=== PATIENT | female | born 1990 | race Caucasian/White ===

== ENCOUNTER 2021-05-26 17:35 | Emergency (ER) | payer OTHER ==
[2021-05-26 17:38] VITALS: BP 124/84; PULSE 65; RESP 16; TEMP 97.2
[2021-05-26] MEDS ORDERED: ACETAMINOPHEN TAB 500 MG TAB PO STA (17:59)
--- NOTE | 2021-05-26 18:48 | XR ---
EXAMINATION TYPE: XR foot complete LT DATE OF EXAM: 05/26/2021 COMPARISON: NONE HISTORY: Foot pain TECHNIQUE: 3 views FINDINGS: Metatarsals appear intact. I see no fracture nor dislocation. The toes appear intact. IMPRESSION: Negative left foot exam. No evidence of a fracture of the toes.
--- NOTE | 2021-05-26 19:07 | ED ---
General Adult HPI - General Chief complaint: Extremity Injury, Lower Stated complaint: Lt Foot Injury Time Seen by Provider: 05/26/21 17:40 Source: patient, RN notes reviewed, old records reviewed Mode of arrival: wheelchair - History of Present Illness Initial comments: Patient is a 31-year-old female who is currently approximately 8 weeks presents emergency department after dropping a spot on her left foot. She was at work when she dropped it on her left foot. She states her lateral 2 toes on her foot hurt. She is able to ambulate. No other injuries. Denies any abdominal cramping or vaginal discharge. Denies any vaginal bleeding. Denies any abdominal injury. Has no other acute complaints at this time. Reasons over concern for possible to medic injury to her left toes. Denies any weakness or numbness. - Related Data Home Medications Medication Instructions Recorded Confirmed No Known Home Medications 05/26/21 05/26/21 Allergies Allergy/AdvReac Type Severity Reaction Status Date / Time No Known Allergies Allergy Verified 05/26/21 18:15 Review of Systems ROS Statement: Those systems with pertinent positive or pertinent negative responses have been documented in the HPI. Review of Systems: CONST: Denies fever EYES: Denies blurry vision ENT: Denies nasal congestion C/V: Denies Chest pain RESP: Denies shortness of breath GI: Denies abdominal pain : Denies dysuria SKIN: Denies rash. MSK: left toe pain NEURO: Denies headache ROS Other: All systems not noted in ROS Statement are negative. Past Medical History Past Medical History: No Reported History Additional Past Medical History / Comment(s): no past medical history per patient History of Any Multi-Drug Resistant Organisms: None Reported Past Surgical History: No Surgical Hx Reported Additional Past Surgical History / Comment(s): none Past Anesthesia/Blood Transfusion Reactions: No Reported Reaction Additional Past Anesthesia/Blood Transfusion Reaction / Comment(s): no Past Psychological History: No Psychological Hx Reported Smoking Status: Vaper Past Alcohol Use History: None Reported Past Drug Use History: None Reported - Past Family History Father History Unknown: Yes Family Medical History: No Reported History General Exam - General Exam Comments Initial Comments: General: Appears in mild distress secondary to toe pain HEAD: Normal with no signs of head trauma. EYES: EOMI ENT: Hearing grossly intact RESPIRATORY: No increased work of breathing C/V: Regular rate and rhythm. Peripheral pulses 2+ and intact throughout. Good capillary refill in the distal extremities including the left toes. ABD: Abdomen is nondistended. EXT: Normal range of motion of all extremities including left foot and ankle. Some tenderness over flexion of the left fourth and fifth toes, however no reduced motion. No obvious deformities. No tenderness over the mid or hindfoot. No tenderness over the ankle. SKIN: No rashes or lesions observed on exposed skin. NEURO: Alert and oriented 4. Able to ambulate without difficulty. Course Vital Signs 05/26/21 17:36 Temperature 97.2 F L Pulse Rate 65 Respiratory 16 Rate Blood Pressure 124/84 O2 Sat by Pulse 100 Oximetry Medical Decision Making - Medical Decision Making This and the patient's presentation and physical exam, I'm concerned for possible bony traumatic injury the patient's left foot. We will obtain an x-ray of the left foot. She'll be given Tylenol for pain control. Patient was in agreement this plan. Patient's x-ray showed no acute fracture or subluxation. I discussed the findings with the patient. I believe it is safe for her to be discharged home. She'll be given a work note. She can use at home Tylenol [id number] for pain control. She was in agreement this plan. We discussed rest, elevation, as well as icing her injury. She likely has a bruising. She was in agreement this plan.Patient is on vitamins already and has follow up with her REC THERAPIST tomorrow. I instructed the patient to follow up with their PCP in the next 3 days. I explained that the patient should return to the emergency department if they experience any worsening symptoms. Strict return precautions were discussed with the patient. The patient expressed understanding of these instructions. I answered all questions that the patient had. The patient was discharged home in good condition with their prescriptions and follow up information. Disposition Clinical Impression: Left foot pain Disposition: HOME SELF-CARE Condition: Good Instructions (If sedation given, give patient instructions): Foot Contusion (ED) Is patient prescribed a controlled substance at d/c from ED?: No Referrals: None,Stated [Primary Care Provider] - 1-2 days
== END 2021-05-26 19:23 | disposition home or self-care (01) ==
LOC: EC 17:35
DX: O26.891 Other specified pregnancy related conditions, first trimester (principal); M79.672 Pain in left foot; F17.290 Nicotine dependence, other tobacco product, uncomplicated; Z3A.08 8 weeks gestation of pregnancy
CPT/HCPCS: 99283

== ENCOUNTER → 2021-06-11 | Outpatient (CLI) | payer OTHER ==
--- NOTE | 2021-06-11 10:52 | US ---
EXAMINATION TYPE: Transabdominal DATE OF EXAM: 06/11/2021 10:33 AM COMPARISON: NONE CLINICAL HISTORY: Z36.89 Encounter for other specified screening. Confirm dates. EXAM PERFORMED: Transabdominal (TA) EXAM MEASUREMENTS: GESTATIONAL AGE / DATING Dates by LMP: (10 weeks/3 days) EDC: 01/04/2022 Dates by Current Scan for: (10 weeks/4 days) EDC: 01/03/2022 MATERNAL ANATOMY Uterus: 13.0 x 6.6 x 6.6 Right Ovary: 3.2 x 1.9 x 1.2 cm Left Ovary: 3.6 x 3.3 x 2.6 cm Post CDS / Adnexa: wnl Presence of free fluid: wnl Presence of corpus luteal cyst: Left ovary measuring 2.0 x 2.0 x 2.3 cm Presence of subchorionic bleed: none GESTATION / SURVEY CRL: 3.7 (10 weeks/4 days) Yolk Sac (normal less than 6mm): 0.5 Heart Rate: 166 bpm Rhythm: Normal IUP: Viable IUP Date of LMP: 03/30/2021 Beta HcG (if available): Not available at this time Single live IUP Single live intrauterine gestation as gestational sac, yolk sac, and pole are present. No free fluid in pelvic cul-de-sac. Both ovaries identified. Within the left ovary there is 2.3 cm thin-walled cyst possible corpus lutea l cyst. No suspicious extra ovarian adnexal lesions identified. IMPRESSION: Single live intrauterine gestation is confirmed, mean crown-rump length is 3.7 cm corresp onding to 10 week 4 day old fetus.
== END | disposition home or self-care (01) ==
LOC: RADUSWWP 10:16
PROVIDERS: ATTEND Obstetrics & Gynecology
DX: Z36.89 Encounter for other specified antenatal screening (principal); Z3A.10 10 weeks gestation of pregnancy
CPT/HCPCS: 76801

== ENCOUNTER 2021-09-26 16:53 | Outpatient (CLI) | payer OTHER ==
[2021-09-26 17:45] VITALS: BP 121/57; PULSE 75; RESP 17; TEMP 97.5
== END 2021-09-26 17:22 | disposition home or self-care (01) ==
LOC: FBPOP 16:53
PROVIDERS: ATTEND Obstetrics & Gynecology
DX: R10.9 Unspecified abdominal pain (principal)
CPT/HCPCS: 99213

== ENCOUNTER 2021-11-30 16:45 | Outpatient (CLI) | payer OTHER | END 2021-11-30 18:55 | disposition home or self-care (01) | LOC: FBPOP 16:45 | PROVIDERS: ATTEND Obstetrics & Gynecology | DX: O75.89 Other specified complications of labor and delivery (principal); Z3A.35 35 weeks gestation of pregnancy; Z91.09 Other allergy status, other than to drugs and biological substances | CPT/HCPCS: 59025; G0463; 99213 ==

== ENCOUNTER 2021-12-30 05:50 | Inpatient (IN) | payer OTHER ==
--- NOTE | 2021-12-29 19:43 | P.HPOB ---
History of Present Illness H&P Date: 12/29/21 Chief Complaint: Induction of labor This is a 31 y.o. female, 2, para 1, with an estimated date of confinement of 01/04/2022, estimated gestational age of 39-2/7 weeks, who presents for induction of labor. She complains of frequent contractions and pressure. has been uncomplicated. labs: Hepatitis B surface antigen-neg RPR-NR Rubella-immune Blood type-A neg Antibody screen-neg HIV-NR Hemoglobin-14.2 Random glucose-78 Quad-neg 1 hr. GTT-85 Rhogam given at 28 weeks GBS-neg OB Hx: . History of 1 vaginal delivery at 38 weeks for IUGR. Pegger Dobby Looms Hx: No hx STDs Social Hx: Engaged. 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 Review of Systems Constitutional: Denies chills, Denies fever Eyes: denies blurred vision, denies pain Ears, nose, mouth and throat: Denies headache, Denies sore throat Cardiovascular: Denies chest pain, Denies shortness of breath Respiratory: Denies cough Gastrointestinal: Reports abdominal pain (irregular contractions) Genitourinary: Reports Musculoskeletal: Reports low back pain Past Medical History Past Medical History: No Reported History Additional Past Medical History / Comment(s): no past medical history per patient History of Any Multi-Drug Resistant Organisms: None Reported Past Surgical History: No Surgical Hx Reported Additional Past Surgical History / Comment(s): none Past Anesthesia/Blood Transfusion Reactions: No Reported Reaction Additional Past Anesthesia/Blood Transfusion Reaction / Comment(s): no Past Psychological History: No Psychological Hx Reported Smoking Status: Vaper Past Alcohol Use History: None Reported Past Drug Use History: None Reported - Past Family History Father History Unknown: Yes Family Medical History: No Reported History Medications and Allergies Home Medications Medication Instructions Recorded Confirmed Type No Known Home Medications 05/26/21 05/26/21 History Allergies Allergy/AdvReac Type Severity Reaction Status Date / Time cat dander Allergy Swelling Verified 09/26/21 17:03 Exam Osteopathic Statement: *. No significant issues noted on an osteopathic structural exam other than those noted in the History and Physical/Consult. HEENT: within normal limits Heart: regular rate and rhythm Lungs: clear to auscultation bilaterally Abdomen: , non-tender Cervix: 2 cm/70%/-2 heart tones: 140's by doppler Extremities: neg. Keshawn's Assessment and Plan (1) 39 weeks gestation of Status: Acute Code(s): Z3A.39 - 39 WEEKS GESTATION OF SNOMED Code(s): 60060047 Plan: Admission for oxytocin induction of labor. Expectant management. Epidural anesthesia if desired.
[2021-12-30] MEDS ORDERED: LIDOCAINE 0.5% (PF) 5 MG/ML (50 ML SDV) SQ PRN (06:01)
[2021-12-30] MEDS ORDERED: OXYTOCIN 10 UNIT/ML 1 ML VIAL IM PRN (06:01)
[2021-12-30] MEDS ORDERED: OXYTOCIN 30 UNITS/500 ML NS 30 UNIT in SALINE 1 500ML.BAG IV SCH ×2 (06:01→14:26)
[2021-12-30] MEDS ORDERED: TERBUTALINE 1 MG/ML VIAL SQ PRN (06:01)
[2021-12-30] MEDS ORDERED: METHYLERGONOVINE 0.2 MG/ML 1 ML AMP IM PRN (06:01)
[2021-12-30] MEDS ORDERED: CARBOPROST TROMETHAMINE 250 MCG/ML 1 ML AMP IM PRN (06:01)
[2021-12-30] MEDS ORDERED: LIDOCAINE 1% (10MG/ML) FOR IV START INTRADERMA PRN (06:01)
[2021-12-30] MEDS: LACTATED RINGERS 1,000 ML IV SCH ×2 (06:10→16:56)
[2021-12-30 06:21] LABS: Basophils % (A) 0 %; Eosinophils # (A) 0.2 k/uL (0-0.7); Eosinophils % (A) 2 %; HCT 33.4 % (34.0-46.0); HGB 10.8 gm/dL (11.4-16.0); Hypochromasia Moderate; Lymphocytes # (A) 2.4 k/uL (1.0-4.8); Lymphocytes % (A) 23 %; MCH 26.6 pg (25.0-35.0); MCHC 32.4 g/dL (31.0-37.0); Mean Platelet Volume 11.2; Monocytes # (A) 0.7 k/uL (0-1.0); Monocytes % (A) 7 %; Neutrophils # (A) 6.9 k/uL (1.3-7.7); Neutrophils % (A) 66 %; Platelet Count 164 k/uL (150-450); RBC 4.07 m/uL (3.80-5.40); RDW 13.6 % (11.5-15.5); WBC 10.5 k/uL (3.8-10.6)
[2021-12-30] MEDS ORDERED: ROPIVACAINE 5 MG/ML 20 ML AMPULE ONE (09:07)
[2021-12-30] MEDS ORDERED: fentaNYL (PF) 50 MCG/ML 5 ML AMP ONE (09:07)
[2021-12-30] MEDS ORDERED: SODIUM CHLORIDE 0.9% 100 ML BAG ONE (09:07)
[2021-12-30] MEDS ORDERED: ROPIVACAINE 100 MG, fentaNYL (PF). 200 MCG in SODIUM CHLORIDE 0.9% 76 ML EPIDURAL ONE (09:35)
[2021-12-30] MEDS ORDERED: diphenhydrAMINE 25 MG CAP PO PRN (14:26)
[2021-12-30] MEDS ORDERED: LANOLIN CREAM 5 GM TUBE TOPICAL PRN (14:26)
[2021-12-30] MEDS ORDERED: diphenhydrAMINE 50 MG CAP PO PRN (14:26)
[2021-12-30] MEDS ORDERED: ACETAMINOPHEN TAB 325 MG TAB PO PRN (14:26)
[2021-12-30] MEDS ORDERED: diphenhydrAMINE 50 MG/ML 1 ML VIAL IVP PRN ×2 (14:26)
[2021-12-30] MEDS ORDERED: ZOLPIDEM 5 MG TAB PO PRN (14:26)
[2021-12-30] MEDS ORDERED: HYDROCORTISONE 2.5% RECTAL CREAM 30 GM TUBE RECTAL PRN (14:26)
[2021-12-30] MEDS ORDERED: BENZOCAINE/MENTHOL SPRAY 1 GM/SPRAY AEROSOL TOPICAL PRN (14:26)
[2021-12-30] MEDS ORDERED: SIMETHICONE 80 MG CHEWABLE PO PRN (14:26)
[2021-12-30] MEDS: IBUPROFEN 600 MG TAB PO PRN ×2 (14:51→21:10)
[2021-12-30] MEDS ORDERED: Rhogam IMMUNE GLOBULIN 1,500 UNIT/1 ML IM ONE (16:48)
--- NOTE | 2021-12-30 17:40 | P.PROBDLV ---
Vaginal Delivery Note - . Vaginal Delivery Note: The patient progressed to complete dilation after oxytocin induction of labor and artificial rupture membranes with clear fluid noted. She did receive epidural anesthesia. Once reaching complete, she began pushing. 's head came to a crown. With one further push, the infant's head delivered across the perineum followed by the anterior shoulder. Nose and mouth were bulb suctioned at the perineum. With one push, the remainder the infant easily delivered and was placed on mother's abdomen. The cord was allowed to finish pulsating and then was clamped and cut. Infant was taken to warmer for evaluation by nursing staff. A viable female infant is noted with scores of 9 at 1 minute and 9 at 5 minutes and infant weight of 8 lbs. 0 oz. Placenta was delivered shortly thereafter, intact, with a three-vessel cord. Cord blood was also obtained secondary to Rh- status. Uterus contracted fairly well after oxytocin was given and uterine massage was carried out. A few clots were expressed from the endometrial cavity. Suction of the perineum revealed a small second-degree perineal laceration. This area was anesthetized with 1% lidocaine and then sutured with 3-0 Vicryl suture in the usual multilayer fashion. Estimated blood loss is approximately 200 mL's. Mother and infant are in stable condition.
[2021-12-30] MEDS: SENNOSIDES-DOCUSATE SODIUM 1 EACH TAB PO SCH (20:39)
[2021-12-31 02:25] VITALS: RESP 14
[2021-12-31] MEDS: IBUPROFEN 600 MG TAB PO PRN ×2 (03:23→09:35)
[2021-12-31] MEDS: SENNOSIDES-DOCUSATE SODIUM 1 EACH TAB PO SCH (08:20)
[2021-12-31 08:26] LABS: Basophils % (A) 0 %; Eosinophils # (A) 0.2 k/uL (0-0.7); Eosinophils % (A) 2 %; HCT 31.1 % (34.0-46.0); HGB 9.6 gm/dL (11.4-16.0); Hypochromasia Moderate; Lymphocytes # (A) 2.2 k/uL (1.0-4.8); Lymphocytes % (A) 21 %; MCH 25.7 pg (25.0-35.0); MCHC 30.8 g/dL (31.0-37.0); MCV 83.4 fL (80.0-100.0); Mean Platelet Volume 12.6; Monocytes # (A) 0.7 k/uL (0-1.0); Monocytes % (A) 7 %; Neutrophils # (A) 7.1 k/uL (1.3-7.7); Neutrophils % (A) 68 %; RBC 3.73 m/uL (3.80-5.40); RDW 13.7 % (11.5-15.5); WBC 10.5 k/uL (3.8-10.6)
[2021-12-31 08:45] LABS: Large Platelets Present
[2021-12-31 08:46] LABS: Platelet Count 136 k/uL (150-450); Polychromasia Present
--- NOTE | 2021-12-31 08:49 | P.DS ---
Providers Date of admission: 12/30/21 05:50 Expected date of discharge: 12/31/21 Attending physician: Yudi Carrington Primary care physician: Stated None - Discharge Diagnosis(es) (1) 39 weeks gestation of Current Visit: No Status: Acute Hospital Course: This is a 31-year-old female 2 para 1 at 39-2/7 weeks who presented for induction of labor. She underwent oxytocin induction of labor and delivered vaginally a viable female with scores of 9 at 1 minute and 9 at 5 minutes and infant weight of 8 lbs. 0 oz. on 12/30/2021. Her course has been uncomplicated. She is bottle feeding. Lochia is decreasing. Her pain is well-controlled. Vital signs are stable. Abdomen is soft with fundus firm and nontender. Extremities show negative Homans. Impression is status post vaginal delivery day #1. Plan is to discharge home today. Routine instructions are given. She will be given a prescription for ibuprofen. She is advised follow-up in the office in 6 weeks for check. She is advised to call the office if she has any further questions or concerns prior to her appointment time. Procedures: Oxytocin induction of labor Spontaneous vaginal delivery of a viable female on 12/30/2021 Patient Condition at Discharge: Stable Plan - Discharge Summary New Discharge Prescriptions: New Ibuprofen [Motrin] 600 mg PO Q6HR PRN #60 tab PRN Reason: Mild Pain (Scale 1 To 3) Continue Vit No.179/Iron/Folic [ Tablet] 1 each PO DAILY Discharge Medication List Vit No.179/Iron/Folic [ Tablet] 1 each PO DAILY 12/30/21 [History] Ibuprofen [Motrin] 600 mg PO Q6HR PRN #60 tab 12/31/21 [Rx] Follow up Appointment(s)/Referral(s): Yudi Carrington DO [Doctor of Osteopathic Medicine] - 02/08/22 11:30 am Activity/Diet/Wound Care/Special Instructions: Instructions 1. Do not begin any exercise program for 3 weeks. 2. Do not resume sexual relations for 3 weeks or longer if uncomfortable. 3. You may take tub baths or showers at any time. 4. You may use tampons if desired after 3 weeks. 5. Keep the area of episiotomy (stitches) clean and dry. 6. If you are not nursing, wear a good fitting, supportive bra during the day and limit fluid intake for at least 1 week to prevent breast engorgement. 7. Call the office, [phone], within the next week to make appointment for your 6 week checkup if it has not already been made. 8. Report any of the following occurrences to the doctor promptly: a. Heavy, excessive bleeding b. Chills, fever c. Burning or frequency of urination d. Pain or redness and breasts if nursing e. Increasing pain or swelling in episiotomy (stitches). In addition to the above instructions, the following additional should be followed: 1. No heavy lifting or straining (exercising) until after 6 week checkup. 2. Keep abdominal incision clean and dry: You may wear a dressing if more comfortable. 3. Make office appointment for 10 days after going home or as instructed by her doctor. Discharge Disposition: HOME SELF-CARE
[2021-12-31 09:21] VITALS: BP 110/71; PULSE 78; TEMP 98.4
== END 2021-12-31 14:30 | disposition home or self-care (01) | DRG 807 ==
LOC: 4FBP 05:50
PROVIDERS: ADMIT Obstetrics & Gynecology; ATTEND Obstetrics & Gynecology
PROC: 10E0XZZ Delivery of Products of Conception, External Approach (ICD-10-PCS; principal; 2021-12-30)
PROC: 0KQM0ZZ Repair Perineum Muscle, Open Approach (ICD-10-PCS; 2021-12-30)
PROC: 10907ZC Drainage of Amniotic Fluid, Therapeutic from Products of Conception, Via Natural or Artificial Opening (ICD-10-PCS; 2021-12-30)
PROC: 3E033VJ Introduction of Other Hormone into Peripheral Vein, Percutaneous Approach (ICD-10-PCS; 2021-12-30)
PROC: 4A0HXCZ Measurement of Products of Conception, Cardiac Rate, External Approach (ICD-10-PCS; 2021-12-30)
DX: O70.1 Second degree perineal laceration during delivery (principal); Z37.0 Single live birth; J30.81 Allergic rhinitis due to animal (cat) (dog) hair and dander; O99.892 Other specified diseases and conditions complicating childbirth; Z3A.39 39 weeks gestation of pregnancy
CPT/HCPCS: 85025; 85461; 86850; 86900; 86901